=== PATIENT | female | born 1990 | race Native Hawaiian/Other Pacific Islander ===

== ENCOUNTER 2018-04-08 05:45 | Inpatient (IN) | payer MEDICAID ==
[2018-04-08 06:24] VITALS: BMI 31.3
[2018-04-08] MEDS ORDERED: Lactated Ringer's 1,000 ML IV ONE (06:24)
--- NOTE | 2018-04-08 06:29 | OBHP ---
Datetime: 04/08/2018 06:24 IP Adm Impression: Term, intrauterine ; Active labor IP Admit Plan: Admit to unit; Initiate Section protocol Admit Comment, IP Provider: at 38+weeks damien with c/.o ctxs startedat 3 am , q 1-5 , 04/23.no vb , lof+fm obhx 1 x c/s pmh de med pnv all nkda psh de soch de ve /-2' a/p at 38+weeks in active labor admit to l_d [employer] scout/ivf lab pain ma skin abxs or aware dr downing will take the cosent Pelvic Type - PN: Adequate Extremities - PN: Normal Abdomen - PN: Normal Back - PN: Normal Breast - PN: Normal Lungs - PN: Normal Heart - PN: Normal Thyroid - PN: Normal Neurologic - PN: Normal HEENT - PN: Normal General - PN: Normal FHR - Baseline A Provider: 140 Contraction Comments Provider: q1-4 IP Hx Assessment: The History has been Reviewed and is Current EGA AdmitDate IP: 38.6 IP Chief Complaint: Uterine contractions NICHD Variability Prov Fetus A: Moderate 6-25bpm NICHD Accel Fetus A IP Provider: [id number] FHR Category Provider Fetus A: Category I Dilatation, Provider: 3 Effacement, Provider: 70 Station, Provider: -3 Genitourinary Exam: Normal DTRs - PN: Normal
[2018-04-08] MEDS ORDERED: Sodium Citrate/Citric Acid 15 ml Sol PO ONE (07:00)
[2018-04-08 07:27] LABS: BASO % 0.1 % (0.0-2.0); EOS % 0.2 % (0.0-4.0); HEMOGLOBIN 13.8 g/dL (11.0-16.0); LYMPH # 1.8 K/uL (1.0-4.3); LYMPH % 16.7 % (20.0-40.0); MEAN CELL VOLUME 89.1 fL (81.0-99.0); MEAN CORPUSCULAR HEMOGLOBIN 30.6 pg (27.0-31.0); MEAN CORPUSCULAR HGB CONC 34.4 g/dL (33.0-37.0); MEAN PLATELET VOLUME 10.4 fL (7.2-11.7); MONO # 0.6 K/uL (0.0-0.8); MONO % 6.1 % (0.0-10.0); NEUT # 8.1 K/uL (1.8-7.0); NEUT % 76.9 % (50.0-75.0); RBC 4.51 Mil/uL (3.80-5.20); RED CELL DISTRIBUTION WIDTH 14.6 % (11.5-14.5); WHITE BLOOD COUNT 10.5 K/uL (4.8-10.8)
[2018-04-08] MEDS ORDERED: cefOXitin IV 2 gm in Saline 2 GM/50 ML BAG IVPB ONE (07:30)
[2018-04-08] MEDS ORDERED: cefOXitin IV 2 gm in Dextrose 2 GM/50 ML BAG IVPB ONE (07:30)
[2018-04-08] MEDS ORDERED: Sodium Citrate/Citric Acid 15 ml Sol ONE (07:30)
[2018-04-08] MEDS ORDERED: Oxytocin 20 units in LR 2,000 ML IV ONE (07:31)
[2018-04-08 07:38] LABS: SQUAMOUS EPITHIAL 20 /hpf (0-5); URINE BILIRUBIN NEGATIVE (NEGATIVE); URINE BLOOD NEGATIVE (NEGATIVE); URINE CLARITY Hazy (Clear); URINE COLOR Yellow (YELLOW); URINE GLUCOSE (UA) NORMAL (Normal); URINE LEUKOCYTE ESTERASE 1+ Leu/uL (Negative); URINE PROTEIN NEGATIVE (NEGATIVE); URINE UROBILINOGEN NORMAL mg/dL (0.2-1.0)
[2018-04-08] MEDS ORDERED: Morphine 1 mg/ml preservative-free Inj(Duramorph) ONE (07:59)
[2018-04-08] MEDS ORDERED: Oxytocin 10 Units/ml Inj ONE (08:40)
[2018-04-08] MEDS ORDERED: DiphenhydrAMINE 50 mg/ml Inj IVP PRN (09:38)
[2018-04-08] MEDS: Simethicone 80 mg Chewtab PO SCH ×2 (18:25→22:34)
--- NOTE | 2018-04-08 19:00 | PCM.SURG1 ---
Surgeon's Initial Post Op Note - Surgeon's Notes Surgeon: Angela Levin MD Market Research Executive: Jason Galan MD Type of Anesthesia: Spinal Anesthesia Administered By: Karey Monroe MD Pre-Operative Diagnosis: 38 weeks 6 days gestation. Previous section. Labor Operative Findings: Live male , JERAD position, weight 7lb 1oz. Normal uterus; normal fallopian tubes and ovaries, bilaterally. Post-Operative Diagnosis: Same Operation Performed: Repeat transverse lower uterine segment section Specimen/Specimens Removed: None Estimated Blood Loss: EBL {In ML}: 600 (U.O. 500 mL, clear. 1600 mL LR. Methergine 0.2mg IM x 1) Blood Products Given: N/A Drains Used: No Drains Post-Op Condition: Good Date of Surgery/Procedure: 04/08/18 Time of Surgery/Procedure: 09:00
--- NOTE | 2018-04-08 20:17 | OBDS ---
DELIVERY PERSONNEL Delivery Doctor: Ciara Levin MD Scrub Nurse: Valerie Gonzalez OBT Vending Machine Technician: Boone Dickinson RN Anesthesiologist: Clementine Monroe MD MATERNAL INFORMATION Delivery Anesthesia: Spinal Medications in Delivery: methergine Estimated Blood Loss (ml): 600 Placenta Cultured: No Maternal Complications: Other Other Maternal Complications: previous c/s in labor late PNC (February 2018) RN Comments: methergine IM given in OR by anesthesia, Dr. Gonzalez Provider Comments: Unremarkable repeat LTCS, live male , JERAD position, weight 7lb 1oz, 's 9/9. Grossly unremarkable placenta, 3 vessel cord Grossly normal uterus and fallopian tubes and ovaries, bilaterally. Routine closure Infant to well baby nursery, mother to recovery room - both in stable condition EBL 600 mL U.O. 500 mL IVFs 1,600 mL LABOR SUMMARY EDC: 04/16/2018 00:00 No. Babies in Womb: 1 Attempted: No Labor Anesthesia: None LABOR INFORMATION Reason for Induction: Not Applicable Onset of Labor: 04/08/2018 03:00 Oxytocin: N/A Group B Beta Strep: Positive Antibiotics # of Doses: 1 Antibiotics Time of Last Dose: 7;45 Steroids Given: None Reason Steroids Not Administered: Not Applicable MEMBRANES Membranes Rupture Method: Artificial Rupture of Membranes: 04/08/2018 08:33 Length of Rupture (hrs): 0.02 Amniotic Fluid Color: Clear Amniotic Fluid Amount: Moderate Amniotic Fluid Odor: Normal STAGES OF LABOR Stage 3 hrs: 0 Stage 3 min: 1 Total Time in Labor hrs: 5 Total Time in Labor min: 35 CSECTION DELIVERY Primary Indication: Repeat Elective Secondary Indication: Other Other Secondary Indication: previous c/s CSection Urgency: Elective CSection Incidence: Repeat Labor: Labor Elective: Elective CSection Incision: Lower Uterine Transverse BABY A INFORMATION Infant Delivery Date/Time: 04/08/2018 08:34 Method of Delivery: Born in Route : No : N/A Forceps: N/A Vacuum Extraction: N/A Shoulder Dystocia : No SHOULDER DYSTOCIA BABY A Delivery Date/Time: 04/08/2018 08:34 PRESENTATION/POSITION BABY A Presentation: Cephalic Cephalic Presentation: Vertex Vertex Position: Right Occipital Anterior Breech Presentation: N/A PLACENTA INFORMATION BABY A Placenta Delivery Time : 04/08/2018 08:35 Placenta Method of Delivery: Manual Removal Placenta Status: Delivered SCORES BABY A Heart Rate 1 min: >100 bpm Resp Effort 1 min: Good Cry Reflex Irritability 1 min: Cough or Sneeze or Pulls Away Muscle Tone 1 min: Active Motion Color 1 min: Body [place], Extremities Blue Resuscitation Effort 1 min: N/A SCORE 1 MIN: 9 Heart Rate 5 min: >100 bpm Resp Effort 5 min: Good Cry Reflex Irritability 5 min: Cough or Sneeze or Pulls Away Muscle Tone 5 min: Active Motion Color 5 min: Body [place], Extremities Blue Resuscitation Effort 5 min: N/A SCORE 5 MIN: 9 INFORMATION BABY A Gestational Age at Delivery: 38.6 Gestational Status: Term Outcome : Liveborn Infant Condition : Stable Sex: Male IDENTIFICATION/MEDS BABY A ID Band Number: [id number] ID Band Location: Left Leg; Left Arm Sensor Applied: Yes Sensor Number: [id number] Sensor Location : Right Leg Vitamin K Given : Not Given Erythromycin Given: Not Given WEIGHT/LENGTH BABY A Infant Birthweight (gms): 3200 Infant Weight (lb): 7 Infant Weight (oz): 1 Infant Length Inches: 19.00 Infant Length cms: 48.3 CORD INFORMATION BABY A No. Cord Vessels: 3 Nuchal Cord : N/A Cord Blood Taken: Yes Infant Suction: Mouth; Nose
[2018-04-09 07:59] LABS: MEAN CELL VOLUME 88.9 fL (81.0-99.0); MEAN CORPUSCULAR HEMOGLOBIN 30.6 pg (27.0-31.0); MEAN CORPUSCULAR HGB CONC 34.4 g/dL (33.0-37.0); MEAN PLATELET VOLUME 10.4 fL (7.2-11.7); RBC 3.72 Mil/uL (3.80-5.20); RED CELL DISTRIBUTION WIDTH 14.5 % (11.5-14.5); WHITE BLOOD COUNT 14.8 K/uL (4.8-10.8)
[2018-04-09 08:01] LABS: HEMOGLOBIN 11.4 g/dL (11.0-16.0)
[2018-04-09] MEDS: Oxycodone/Acetaminophen 5/325 mg Tab PO PRN ×3 (09:21→23:31)
[2018-04-09] MEDS: Prenatal Multivit/Folic Acid/Iron Tab PO SCH (09:24)
[2018-04-09] MEDS: Simethicone 80 mg Chewtab PO SCH ×4 (09:24→23:26)
--- NOTE | 2018-04-09 11:21 | OP ---
PROCEDURE DATE: 04/08/2018 SURGEON: Angela Levin MD. SOFTWARE DEVELOPMENT INTERN: Jason Galan MD. ANESTHESIOLOGIST: Sabrina Floyd MD. ANESTHESIA TYPE: Spinal. PREOPERATIVE DIAGNOSIS: A 38-weeks 6-day gestation, previous Caesarean section in labor. POSTOPERATIVE DIAGNOSIS: A 38-weeks 6-day gestation, previous Caesarean section in labor. OPERATIVE FINDINGS: Live male with the right occipital anterior position, weight 7 pounds 1 ounce, Apgars 9 and 9 at 1 and 5 minutes respectively. Normal uterus and normal fallopian tubes and ovaries bilaterally. OPERATION PERFORMED: Repeat transverse lower uterine segment Caesarean section. ESTIMATED BLOOD LOSS: 600 mL. URINE OUTPUT: 500 mL of clear urine. IV FLUIDS: 1600 mL of lactated Ringer's; Methergine 0.2 milligrams intramuscularly BLOOD PRODUCTS GIVEN: None. DRAINS: None. COMPLICATIONS: None. PROCEDURE: The patient was taken to the operating room after having obtained informed consent for the anticipated procedure. This included a discussion of potential complications including, but not limited to, infection requiring continued antibiotics, hemorrhage requiring blood transfusion, repair of any damage to internal organs, possible Caesarean hysterectomy. The patient expressed understanding. No questions were offered. Consents were signed, dated, witnessed and placed in the chart. The patient received Mefoxin 2 grams IV push prior to being transferred to the recovery room and a Johnson catheter had been inserted under sterile condition. Once in the operating room, she was placed on the operating room table in sitting position where spinal anesthesia was administered without incident. Immediately after this, she was repositioned into supine position. The abdomen was prepped and she was subsequently draped in usual sterile fashion. After assuring adequate level of anesthesia using a scalpel, a Pfannenstiel incision was made on the skin through the previous scar. The incision was carried down through the subcutaneous tissue to the level of the fascia using the Bovie electrocautery. The fascia was identified. It was nicked in the midline and the incision was extended bilaterally also using the Bovie electrocautery. The rectus muscle was in the midline by sharp dissection and the abdominal cavity was entered via sharp dissection. The vesicouterine reflection was identified and a bladder flap was created. A transverse incision was then made on the lower uterine segment. Amniotomy was performed and a copious amount of clear fluid was obtained. Atraumatic delivery of the infant with findings as above then ensued. Once on the operative field, the infant's mouth and nose were bulb suctioned as umbilical cord was doubly clamped and cut. The infant was handed off the operative field to the fitting room maintenance mechanic in attendance. By manual extraction, the placenta was delivered. It was grossly intact with three vessels present in the cord. The uterus was then exteriorized for closure in two layers and this was done using 1-0 Vicryl. The first layer was in a running interlocking fashion and the second layer was in a horizontal imbricating fashion. Attention was then directed to the posterior aspect of the uterus with the findings as above. Copious irrigation was performed. Attention was redirected to the anterior aspect of the uterus and the bladder flap was reapproximated using 2-0 chromic in a running fashion. The uterus was returned to the abdominal cavity. The paracolic gutters were cleared of all debris. The parietal peritoneum was reapproximated using 3-0 chromic in a running fashion. The muscle was reapproximated using 3-0 chromic in a running fashion. The fascia was reapproximated using 0 Vicryl in a running fashion using one suture. The subcutaneous tissue was reapproximated using 0 plain gut in a running fashion and the skin was reapproximated using surgical clips. The patient was then repositioned in a frog-leg manner. Bimanual exploration was performed and the uterus was evacuated of additional blood clots and debris. Uterus was contracted and firm, noted to be one fingerbreadth below the umbilicus. A pressure dressing was applied. The patient was subsequently transferred to the recovery room in stable condition. The had been transferred to the [facility] Baby Nursery also in stable condition. Dr. Jason Galan was present throughout the entire procedure. His presence was necessary for the followin. Assuring adequate visualization of the operative field at all times. 2. For the safe and atraumatic delivery of the infant. 3. Assuring adequate hemostasis throughout the procedure. Angela Levin MD [facility] # [id number] MTDD
[2018-04-10] MEDS: Oxycodone/Acetaminophen 5/325 mg Tab PO PRN ×2 (06:48→10:30)
--- NOTE | 2018-04-10 08:35 | OBPPN ---
Datetime: 04/10/2018 08:23 PP Pain Prov: Within normal limits PP Nausea Prov: Denies PP Flatus Prov: Yes PP BM Prov: Yes PP Breasts Prov: Normal PP Heart Prov: Normal PP Lungs Prov: Normal PP Abdomen/Uterus Prov: Normal PP Lochia Prov: Normal PP Vulva/Perineum Prov: Not Done PP CVA Tenderness Prov: Normal PP Extremities Prov: Normal PP C/S Incision Prov: Normal PP Progress Prov: Normal PP Comments Phys Exam Prov: Breasts: no cracked nipples. not engorged Abdomen: (+) BS. Soft, non distended. Fundus firm, mobile, non tender at umbilicus. Incision with jayna - clean, dry and intact. Mild lochia rubra. All other systems reviewed and are negative PP Impression Prov: Normal progression PP Plan Prov: Continue present management PP Progress Note Prov: Patient received in bed, room 459; present. Breast-feeding mostly. Re ports incisional pain: was 9/10 prior to percocet; now 6/10. Voiding and ambulating without difficult y. Denies nausea, vomiting, lightheadedness of dizziness P.E.: as above. Small, obese, in NAD. Awake, alert, oriented to time, person and place. Pleasant and cooperative. - POD#1 H/H 11.4/33.1, Rh (+) Assessment: POD#2, 27 y.o. P2002, S/P repeat C/S at 38+ weeks. Afebrile, vital signs stable. H/H n oted; patient is hemodynamically stable and asymptomatic. Patient encouraged to ambulate in the hallw ay. Patient is clinically stable. Plan: 1) Continue present management 2) Anticipate discharge home 04/10/18 Vital Signs Provider PP: Reviewed; Within Normal Limits
[2018-04-10] MEDS: Prenatal Multivit/Folic Acid/Iron Tab PO SCH (10:17)
[2018-04-10] MEDS: Simethicone 80 mg Chewtab PO SCH ×4 (10:17→21:48)
[2018-04-10 20:42] VITALS: RESP 20; O2SAT 100
[2018-04-11 08:03] VITALS: BP 109/74; PULSE 76; TEMP 97.1
[2018-04-11] MEDS: Prenatal Multivit/Folic Acid/Iron Tab PO SCH (09:20)
[2018-04-11] MEDS: Simethicone 80 mg Chewtab PO SCH (09:20)
--- NOTE | 2018-04-11 09:59 | OBDCSUM ---
Datetime: 04/11/2018 09:57 Discharged to, Provider: Home Follow up at, Provider: , 04/15/18 Disch Instr Activity: Normal activity; May be up to bathroom; May be up for meals; May Shower Disch Instr Diet: Regular Discharge Instructions, Provider: Routine instructions given Discharge Diagnosis, Provider: Term Delivered Discharge Time: 04/11/2018 11:00 Follow up in weeks, Provider: Mack Contraception discussed, Prov: Yes Disch Activity Restrictions: No exercising; No lifting; No sexual activity; Nothing in vagina - Inte rcourse, tampons, douche Discharge Diagnosis Prov Other: Status post repeat section Contraception counseling Contraception after Delivery: Not Planning to Use
== END 2018-04-11 12:00 | disposition home or self-care (01) | DRG 371 ==
LOC: C.EROB 05:45 → C.4D 06:27 → C.4M 15:44
PROVIDERS: ADMIT Obstetrics & Gynecology; ATTEND Obstetrics & Gynecology
PROC: 10D00Z1 Extraction of Products of Conception, Low, Open Approach (ICD-10-PCS; principal; 2018-04-08)
DX: O34.211 Maternal care for low transverse scar from previous cesarean delivery (principal); O99.824 Streptococcus B carrier state complicating childbirth; O99.214 Obesity complicating childbirth; Z3A.38 38 weeks gestation of pregnancy; Z37.0 Single live birth; Z68.31 Body mass index [BMI] 31.0-31.9, adult